=== PATIENT | female | born 1995 ===

== ENCOUNTER 2016-10-22 15:08 | Emergency (ER) | payer OTHER ==
[2016-10-22 15:23] VITALS: BP 144/71; PULSE 88; RESP 18; TEMP 99; O2SAT 99
--- NOTE | 2016-10-22 16:14 | ED PDOC ---
Lower Extremity Pain/Injury Time Seen by Provider: 10/22/16 15:23 Chief Complaint (Nursing): Lower Extremity Problem/Injury Chief Complaint (Provider): Bilateral Leg Swelling History Per: Patient History/Exam Limitations: no limitations Onset/Duration Of Symptoms: Waxing/Waning Current Symptoms Are (Timing): Still Present Additional Complaint(s): Aida Costa is a 21 year old female that presents to the ED with a chief complaint of bilateral leg swelling that she experiences frequently. Patient states that these episodes of swelling occur directly after she eats junk food. 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 Past Medical History Reviewed: Historical Data, Nursing Documentation, Vital Signs Vital Signs: Last Vital Signs Temp 99 F 10/22/16 15:21 Pulse 88 10/22/16 15:21 Resp 18 10/22/16 15:21 BP 144/71 10/22/16 15:21 Pulse Ox 99 10/22/16 15:21 - Medical History PMH: No Chronic Diseases - Family History Family History: States: Unknown Family Hx - Home Medications Home Medications: Ambulatory Orders Medication Instructions Recorded Ibuprofen [Motrin] 400 mg PO Q6 #30 tab 09/25/15 - Allergies Allergies/Adverse Reactions: Allergies Allergy/AdvReac Type Severity Reaction Status Date / Time Penicillins Allergy RASH Verified 10/22/16 15:20 Review of Systems Cardiovascular: Positive for: Edema (b/l leg swelling) Physical Exam - Reviewed Nursing Documentation Reviewed: Yes Vital Signs Reviewed: Yes - Physical Exam Appears: Positive for: Non-toxic, No Acute Distress Head Exam: Positive for: ATRAUMATIC, NORMOCEPHALIC Skin: Positive for: Normal Color, Warm Pulses-Dorsalis Pedis (L): 2+ Pulses-Dorsalis Pedis (R): 2+ Extremity: Positive for: Normal ROM, Swelling (b/l nonpitting leg edema) Neurologic/Psych: Positive for: Alert, Oriented. Negative for: Motor/Sensory Deficits - Laboratory Results Result Diagrams: 10/22/16 16:29 10/22/16 16:29 - ECG O2 Sat by Pulse Oximetry: 99 (RA) Pulse Ox Interpretation: Normal Medical Decision Making Medical Decision Making: Impression: Leg Swelling as a result of water retention Plan: * CMP * CBC * Reevaluation Labs resulted and reviewed with Pt who demonstrated full understanding. Spoke to patient about junk food and its high sodium content, which leads to increased water retention and swelling. Patient's job as a mixed crop and livestock farmer causes her to spend a lot of time on her feet, which gravitationally causes swelling to move to her feet/ankles. Advised patient to purchase compression leggings to prevent/reduce severity of future swelling episodes. Scribe Attestation: Documented by Maggy Galeano, acting as a scribe for Carla Martinez PA-C. Provider Scribe Attestation: All medical record entries made by the Scribe were at my direction and personally dictated by me. I have reviewed the chart and agree that the record accurately reflects my personal performance of the history, physical exam, medical decision making, and the department course for this patient. I have also personally directed, reviewed, and agree with the discharge instructions and disposition. Disposition - Clinical Impression Clinical Impression: Leg edema - Patient ED Disposition Is Patient to be Admitted: No - Disposition Disposition: Routine/Home Disposition Time: 17:34 Condition: STABLE Instructions: Leg Edema (ED) Forms: Appinions (Mexican)
[2016-10-22 16:36] LABS: BASO # 0.2 K/uL (0.0-0.2); BASO % 1.4 % (0.0-2.0); EOS # 0.4 K/uL (0.0-0.7); EOS % 3.4 % (0.0-4.0); HEMATOCRIT 44.7 % (34.0-47.0); LYMPH # 1.8 K/uL (1.0-4.3); LYMPH % 15.8 % (20.0-40.0); MEAN CORPUSCULAR HGB CONC 32.6 g/dL (33.0-37.0); MEAN PLATELET VOLUME 8.1 fl (7.2-11.7); MONO # 0.8 K/uL (0.0-0.8); MONO % 6.5 % (0.0-10.0); NEUT # 8.4 K/uL (1.8-7.0); NEUT % 72.9 % (50.0-75.0); NRBC % 0.1 % (0.0-0.0); RED CELL DISTRIBUTION WIDTH 18.4 % (11.5-14.5); WHITE BLOOD COUNT 11.5 K/uL (4.8-10.8)
[2016-10-22 16:43] LABS: ALB/GLOB RATIO 1.3 (1.0-2.1); ALKALINE PHOSPHATASE 72 U/L (38-126); ALT/SGPT 77 U/L (9-52); AST/SGOT 47 U/L (14-36); BILIRUBIN,TOTAL 0.3 mg/dl (0.2-1.3); BLOOD UREA NITROGEN 12 mg/dl (7-17); CALCIUM 8.7 mg/dL (8.4-10.2); CARBON DIOXIDE 25 mmol/L (22-30); CHLORIDE 105 mmol/L (98-107); GFR AFRICAN-AMERICAN > 60; GLUCOSE,RANDOM 135 mg/dL (65-105); POTASSIUM 4.1 MMOL/L (3.6-5.0); SODIUM 138 mmol/l (132-148); TOTAL PROTEIN 6.3 G/DL (6.3-8.2)
== END 2016-10-22 18:23 | disposition home or self-care (01) ==
LOC: H.ER 15:08
DX: R60.0 Localized edema (principal); Z88.0 Allergy status to penicillin